=== PATIENT | female | born 1970 | race Caucasian/White ===

== ENCOUNTER 2017-09-14 05:22 | Inpatient (IN) | payer OTHER ==
[~2017-09-14] VITALS: Ht 177.8 cm; Wt 60.7 kg
[~2017-09-14 05:22] MED LIST: MOBI15TA PO; TRI-TAB PO
[2017-09-14] MEDS ORDERED: LACTATED RINGER'S 1000 ML IV PRN (05:45)
[2017-09-14] MEDS ORDERED: CHLORHEXIDINE GLUCONATE 2 % 1 PACK (2 CLOTHS) TOPICAL PRN (05:45)
[2017-09-14] MEDS ORDERED: SODIUM CHLORID 0.9% 500 ML IV PRN (05:45)
[2017-09-14] MEDS ORDERED: METOPROLOL TARTRATE 25 MG TAB PO PRN (05:45)
[2017-09-14] MEDS ORDERED: POVIDONE IODINE 5% (ANTISEPSIS KIT) 4 APPLICATIONS EACH NARE PRN (05:45)
[2017-09-14] MEDS ORDERED: DEXAMETHASONE SOD PHOS 20 MG/5 ML VIAL ONE (05:47)
[2017-09-14] MEDS ORDERED: VANCOMYCIN HCL 1000 MG VIAL ONE (05:47)
[2017-09-14] MEDS ORDERED: SODIUM CHLOR 0.9% 250 ML INJ 250 ML ONE (05:48)
[2017-09-14] MEDS ORDERED: MAGN500T5 PO (05:53)
[2017-09-14] MEDS ORDERED: VANCOMYCIN 1000 MG/NS 250 ML (for <70 kg) IV SCH ×2 (06:00)
[2017-09-14] MEDS ORDERED: CELECOXIB 200 MG CAP PO SCH (06:00)
[2017-09-14] MEDS ORDERED: DEXAMETHASONE SOD PHOS 20 MG/5 ML VIAL IV SCH (06:00)
[2017-09-14] MEDS ORDERED: GABAPENTIN 300 MG CAP PO SCH (06:00)
[2017-09-14] MEDS ORDERED: ceFAZolin 2 GM PREMIX 50 ML IV SCH ×2 (06:00→14:00)
[2017-09-14] MEDS ORDERED: CHLORHEXIDINE GLUCONATE 4% SOLN 120 ML BTL TOPICAL SCH (06:00)
[2017-09-14] MEDS ORDERED: GENTAMICIN SULFATE 80 MG/2 ML VIAL ONE (06:12)
[2017-09-14] MEDS ORDERED: ACETAMINOPHEN 1000 MG/100 ML 100 ML IV ONE (06:16)
--- NOTE | 2017-09-14 06:44 | HHI.FF ---
Face to Face Verification Diagnosis: (1) S/P total hip arthroplasty Physical Therapy Gait training Hip: Total hip, Protocol: Right, Progress to weight bearing Right LE Weight Bearing: WB as tolerated Nursing Dressing Changes: Daily dressing change, Coverderm/Primapore (begin adding xeroform POd 10) I have seen patient Shilpa Mustafa on 09/14/17. My clinical findings support the need for the requested home health care services because: Ltd mobility - disease progression I certify that my clinical findings support that this patient is homebound because: Post-op weakness Eder Manriquez/Head Of Visual Merchandising RADHA Sep 14, 2017 06:44
[2017-09-14] MEDS ORDERED: BUPIVACAINE LIPOSO PF 1.3% INJ 20 ML, BUPIVACAINE PF 0.25% INJ 20 ML in SODIUM CHLORIDE... P-ARTICULR SCH (06:45)
[2017-09-14] MEDS ORDERED: WALKER/ADULT/FO1 MIS (06:45)
[2017-09-14] MEDS ORDERED: SODIUM CHLORIDE 0.9% IV SCH (07:00)
[2017-09-14] MEDS ORDERED: TRANEXAMIC ACID IV SCH (07:00)
[2017-09-14] MEDS ORDERED: MORPHINE SULFATE 4 MG/ML INJ IV PUSH PRN (08:45)
[2017-09-14] MEDS ORDERED: KETOROLAC TROMETHAMINE 30 MG/ML (IVP) VIAL IV PUSH SCH (08:45)
[2017-09-14] MEDS ORDERED: ACETAMINOPHEN/HYDROcodone 325 MG/10 MG TAB PO PRN (08:45)
[2017-09-14] MEDS ORDERED: Post-op Orders (for Pharmacy) XX ONE (08:45)
[2017-09-14] MEDS ORDERED: ACETAMINOPHEN/HYDROcodone 325 MG/7.5 MG TAB PO PRN (08:45)
--- NOTE | 2017-09-14 08:49 | PD.OP ---
cc: Nash Machado MD Operative Report Date of Surgery: Sep 14, 2017 Preoperative Diagnosis: Right hip osteoarthritis with femoral neck fracture malunion Postoperative Diagnosis: Procedure: Right total hip arthroplasty Anesthesia: Gen. Surgeon: Nash Machado Candles Pourer(s): ETHEL Quinn PA-C The surgical procedure was assisted by my physician health center assistant. My P.A. presence was necessary throughout this case for the manipulation and positioning of the surgical extremity. My P.A. was assisting me throughout the duration of this procedure. The skill set of a physician health center assistant was medically necessary to complete this procedure. During the surgical case the surgical pathologist was working at the back table and the physician health center assistant was directly assisting me. Operation and Findings: PLAN OF ACTIVITY Weight bear as tolerated. DRAINS: 7-mm JESSY drain. IMPLANTS USED DePuy Corail size [13] standard stem with a size [50] [place] Gription cup, [50 /32] Altrx poly liner, and a [32+1] ceramic Biolox ceramic head. DETAILS OF PROCEDURE: This patient has a long history of hip pain. Patient was found to have severe osteoarthritis. The patient had radiographic evidence of joint space narrowing with ivda-ww-patk arthritis and osteophytes around the acetabulum as well as the femoral head. There was also some cystic changes. The patient failed conservative treatment with pain medications, anti-inflammatories, physical therapy, assistive devices including a cane, as well as therapeutic injection of the hip. Patient's hip arthritis was limiting his ability to ambulate and perform activities of daily living. The patient wished to proceed with surgery and informed consent was obtained. Operative site was marked. I discussed both posterior approach and anterior approach with the patient and decision was made for anterior approach. Patient was brought to OR and placed on OR table. IV sedation and general anesthesia was administered by anesthesiologist. Patient positioned on a Keerthi table and was given IV antibiotics. Time-out procedure was performed. The hip and thigh were prepped with alcohol followed by Hibiclens. The thigh was draped in the usual sterile fashion. Clean Air Suite was used for this procedure. The procedure began with a 5-inch incision over the anterolateral thigh. Subcutaneous tissue was dissected with Bovie. The fascia over the tensa fasciae latae was incised. Care was taken to avoid injury to the lateral femoral cutaneous nerve. The tensor muscle was retracted laterally. Sartorius was retracted medially. Retractors were now placed. The reflected head of the rectus is now elevated. A capsulotomy was performed over the anterior head capsule. Sutures were placed to help retract the capsule. At this point the femoral head and neck were identified. With soft tissue protected, oscillating saw was used to make a cut through the femoral neck, the femoral head was now removed. At this point attention was turned to preparation of the acetabulum. The labrum was excised. The acetabulum was sequentially reamed up to size [50]. A [place] cup was now placed. Fluoroscopy was used to aid in identification of appropriate version. Cup was fully impacted and found to have excellent fit. Hole eliminator was now placed. The liner was now impacted into the cup. At this point the hip was externally rotated. A hook was placed around the proximal femur. The capsule was released off the lateral and medial femur. The hip was now extended and adducted. Retractors were placed around the proximal femur to allow for exposure. A box osteotome was used to remove the lateral cortex of the femoral neck. A broach was used to help lateralize the prosthesis. Canal finder was used to create a path down the canal. Next, the canal was sequentially broached up to size [13]. This was found to be an excellent fit. Calcar planer was placed. A standard head was placed, and the hip was reduced. The hip was found to have excellent stability with good range of motion. The leg lengths were measured under fluoroscopy and found to be equal compared to preoperatively. Trial broach was removed. The Corail stem was opened. Stem was fully impacted into the proximal femur in appropriate version. The femoral head was placed. The hip was again reduced. Fluoroscopy confirmed excellent alignment of prosthesis. The wound was thoroughly irrigated and capsule was closed with #1 Vicryl. The fascia over the tensor fasciae muscle was closed with #1 Vicryl, subcutaneous tissue was closed with 3-0 Vicryl and the skin was closed with spike and Dermabond skin closure. The capsule layers, muscle, and subcutaneous tissue were injected with a mixture of saline and bupivicaine. Dressings were applied. The patient was transferred to Recovery Room in stable condition. Nash Machado MD Sep 14, 2017 08:48
[2017-09-14] MEDS ORDERED: MAGNESIUM GLUCONATE 500 MG PO SCH (09:00)
[2017-09-14] MEDS ORDERED: TRI SPRINTEC PO SCH (09:00)
--- NOTE | 2017-09-14 09:02 | RADRPT ---
EXAM DATE/TIME: 09/14/2017 07:04 [facility] COMPARISON: No previous studies available for comparison. INDICATIONS : Right total hip replacement. MEDICAL HISTORY : None. SURGICAL HISTORY : None. ENCOUNTER: Initial ACUITY: 1 day PAIN SCORE: Non-responsive. LOCATION: Right hip FINDINGS: A two view examination of the right hip was performed. Patient's had a total hip arthroplasty in good position. No acute fracture. CONCLUSION: Total hip arthroplasty in good position. Thaddeus Desouza MD on September 14, 2017 at 8:59 Board Certified Radiologist. This report was verified electronically.
[2017-09-14] MEDS ORDERED: DO NOT ADM ANY ANTICOAGULANT DRUGS PRN (09:06)
[2017-09-14] MEDS ORDERED: *MEPERIDINE 25 MG INJ VIAL PERIprocedural Use ONLY ONE (09:20)
[2017-09-14] MEDS ORDERED: *ONDANSETRON 4 MG VIAL PERIprocedural Use ONLY ONE (09:20)
--- NOTE | 2017-09-14 10:17 | RADRPT ---
EXAM DATE/TIME: 09/14/2017 09:24 [facility] COMPARISON: HIP RIGHT (AP&LAT 2/3VWS) WO AP PELVIS, September 14, 2017, 7:04. INDICATIONS : Post-op right hip. MEDICAL HISTORY : None. SURGICAL HISTORY : None. ENCOUNTER: Initial ACUITY: 1 day PAIN SCORE: 7/10 LOCATION: Right Hip. FINDINGS: A lateral view of the right hip with AP pelvis was obtained. The patient had right total hip arthropl asty in good position. There is no complication or fracture. CONCLUSION: The patient had a right total hip arthroplasty. Thaddeus Desouza MD on September 14, 2017 at 10:14 Board Certified Radiologist. This report was verified electronically.
[2017-09-14] MEDS ORDERED: *morphine SULFATE 8 MG/ML PERIprocedure ONLY ONE (10:43)
[2017-09-14] MEDS ORDERED: TRANEXAMIC ACID INJ 1,000 MG in SODIUM CHLORIDE 0.9% INJ 100 ML IV SCH (11:00)
[2017-09-14 15:22] VITALS: BP 139/79; PULSE 64; RESP 18; TEMP 98; O2SAT 99
--- NOTE | 2017-09-14 16:53 | HHI.DS ---
Discharge Summary Admission Date Sep 14, 2017 at 05:22 Discharge Date: Sep 14, 2017 Admitting Diagnosis Right Hip OA Diagnosis: (1) S/P total hip arthroplasty Diagnosis: Principal ICD Codes: Z96.649 - Presence of unspecified artificial hip joint Procedures right anterior total hip arthroplasty Hospital Course Patient underwent an elective right total hip arthroplasty. She has a history of right hip arthritis and had failed conservative treatments. She tolerated the procedure well. She was evaluated by physical therapy in the postanesthesia care unit. She had mild pain upon waking from the surgery. She was slightly nauseous post surgery but was resolved medications. She did report slight weakness of her right foot. However, she was hemodynamically stable, pain was controlled, she was improving well with a walker and fit for discharge home. She'll be discharged home today with home health care. She will fully weight-bear. She'll keep her incision clean and dry. She'll follow Dr. Jacobo or his PA in 2 weeks Pt Condition on Discharge: Good Discharge Disposition: Disch w/ Home Health Serv Discharge Instructions Diet Instructions: As Tolerated, No Restrictions Activities You Can Perform: Full Weight Bearing Follow up Referrals: Orthopedics - 2 Weeks @ [facility] with Nash Jacobo MD New Medications: Walker/Adult/Folding (Walker/Adult/Folding) 1 Mis Mis EA .ROUTE DIRECTED, #1 0 Refills Continued Medications: Magnesium Gluconate (Magnesium Gluconate) 27 Mg (500 Mg) Tab 500 MG PO DAILY for Nutritional Supplement, TAB 0 Refills Norgestimate-Ethinyl Estradiol (Tri-Sprintec) 0.18/0.215/0.25 Mg-35 Mcg Tab 1 TAB PO DIRECTED Eder Manriquez/Security Assessor PA Sep 14, 2017 16:52
[2017-09-15] MEDS ORDERED: ENOXAPARIN SODIUM 40 MG/0.4 ML SYRINGE SQ SCH (08:00)
[2017-09-15] MEDS ORDERED: DOCUSATE SODIUM 100 MG CAP PO SCH (21:00)
== END 2017-09-14 17:00 | disposition home health service (06) | DRG 470 ==
LOC: HSDI 05:22
PROVIDERS: ADMIT Orthopaedic Surgery Orthopaedic Trauma; ATTEND Orthopaedic Surgery Orthopaedic Trauma
PROC: 0SR904A Replacement of Right Hip Joint with Ceramic on Polyethylene Synthetic Substitute, Uncemented, Open Approach (ICD-10-PCS; principal; 2017-09-14 06:34)
DX: M16.11 Unilateral primary osteoarthritis, right hip (principal); G62.9 Polyneuropathy, unspecified; S72.001K Fracture of unspecified part of neck of right femur, subsequent encounter for closed fracture with nonunion; M70.61 Trochanteric bursitis, right hip; M25.751 Osteophyte, right hip; Z91.018 Allergy to other foods; Z87.891 Personal history of nicotine dependence
CPT/HCPCS: 73501; 73502; 76000; 86850; 86900; 86901; C9290; J0131; J0690; J1100; J1580; J1885; J2175; J2270; J2405; J3370; J7050; J7120